=== PATIENT | female | born 1985 | race Caucasian/White ===

== ENCOUNTER 2019-07-01 10:13 | Outpatient (CLI) | payer OTHER, SELFPAY ==
--- NOTE | 2019-07-01 11:22 | P.TNLD_ITS ---
Visit Information Visit Information Date of evaluation: 07/01/19 Primary OB Provider: Carol Herring Reason for Evaluation: Yes non-stress test non-stress test reason: diabetes Vital Signs Vital Signs: Temp 36.1 BP 112/57 HR 75 PFSH Social History marital status: number of children: 3 household members: spouse and children pets and animals: No education level: high school (GED - some College classes) occupational status: employed ([employer]) current occupational exposures/hazards: No special silvia needs: No Smoking Status: Never smoker Evaluation Evaluation Baseline heart rate: 130 Variability: Moderate (11-25) monitor accelerations: Present monitor decelerations: Absent Diagnosis, Plan/Disposition Final Diagnosis (1) GDM, class A2: Current Visit: No Status: Acute (2) 32 weeks gestation of : Current Visit: Yes Status: Acute Plan/Disposition Plan: Reactive NST done for GDM A2. Plan on twice weekly NST and induction at 39 weeks. OB Disposition: home
== END 2019-07-01 11:00 | disposition home or self-care (01) ==
LOC: OB 14:41
PROVIDERS: Visit Provider Family Medicine
DX: O24.415 Gestational diabetes mellitus in pregnancy, controlled by oral hypoglycemic drugs (principal); Z3A.32 32 weeks gestation of pregnancy; Z87.440 Personal history of urinary (tract) infections
CPT/HCPCS: 59025; 87086; G0378; G0379

== ENCOUNTER → 2019-07-01 11:21 | Outpatient (CLI) | payer OTHER, SELFPAY | PROVIDERS: Visit Provider Family Medicine | DX: Z34.93 Encounter for supervision of normal pregnancy, unspecified, third trimester (principal); Z3A.32 32 weeks gestation of pregnancy; Z87.440 Personal history of urinary (tract) infections | CPT/HCPCS: 87086 ==

== ENCOUNTER 2019-07-15 10:17 | Outpatient (CLI) | payer OTHER, SELFPAY ==
--- NOTE | 2019-07-15 11:55 | PM.OBTRLD ---
Visit Information Visit Information Date of evaluation: 07/15/19 Primary OB Provider: Carol Herring Reason for Evaluation: Yes non-stress test non-stress test reason: diabetes Vital Signs Vital Signs: Temperature 35.9? blood pressure 125/59 heart rate 77 PFSH Social History marital status: number of children: 3 household members: spouse and children pets and animals: No education level: high school (GED - some College classes) occupational status: employed ([employer]) current occupational exposures/hazards: No special silvia needs: No Smoking Status: Never smoker Evaluation Evaluation Baseline heart rate: 130 Variability: Moderate (11-25) monitor accelerations: Present monitor decelerations: Absent Category of Tracing: I Diagnosis, Plan/Disposition Final Diagnosis (1) GDM, class A2: Current Visit: No Status: Acute (2) 34 weeks gestation of : Current Visit: No Status: Acute Plan/Disposition Plan: Reactive NST done for GDM A2. Continue twice weekly NST and once weekly JOSH. OB Disposition: home
== END 2019-07-15 11:16 | disposition home or self-care (01) ==
LOC: LABOR 10:49 → OB 14:27
PROVIDERS: PCP Family Medicine; Visit Provider Family Medicine
DX: O24.419 Gestational diabetes mellitus in pregnancy, unspecified control (principal); Z3A.34 34 weeks gestation of pregnancy
CPT/HCPCS: 59025; G0378; G0379

== ENCOUNTER 2019-07-22 10:27 | Outpatient (CLI) | payer OTHER, SELFPAY ==
--- NOTE | 2019-07-22 11:06 | DI.US.S_ITS ---
PROCEDURE: US OB LIMITED INDICATIONS: JOSH OUTSIDE/PRIOR DATING DATA: Last menstrual period (LMP): 11/19/2018. LMP-based estimated date of delivery (DHRUV): 08/26/2019. First dating scan (date and location): None. Estimated date of delivery (DHRUV) from first dating scan: NA . TECHNIQUE: Real-time scanning was performed of the fetus, with image documentation and biometric measurements. Endovaginal scanning: Not performed COMPARISON: None. FINDINGS: General: A single living intrauterine gestation is present. Presentation: Vertex. Placenta: Placental position is anterior, without previa. Amniotic fluid index: 16.8 cm, normal range is 5-24 cm. (largest pocket 4.8 cm) heart rate: 143 beats per minute. IMPRESSION: 1. Bowen the living intrauterine at 35 weeks 0 days based on LMP. Vertex presentation. 2. Normal placenta and amniotic fluid. JOSH is 16.8 cm. Dictated by: Luiz Andrew M.D. on 07/22/2019 at 12:13 Approved by: Luiz Andrew M.D. on 07/22/2019 at 12:16
--- NOTE | 2019-07-22 13:06 | PM.OBTRLD ---
Visit Information Visit Information Date of evaluation: 07/22/19 Primary OB Provider: Carol Herring Reason for Evaluation: Yes non-stress test non-stress test reason: diabetes (GDM A2) Vital Signs Vital Signs: T 35.9 BP 117/62 HR 80 PFSH Social History marital status: number of children: 3 household members: spouse and children pets and animals: No education level: high school (GED - some College classes) occupational status: employed ([employer]) current occupational exposures/hazards: No special silvia needs: No Smoking Status: Never smoker Evaluation Evaluation Baseline heart rate: 140 Variability: Moderate (11-25) monitor accelerations: Present monitor decelerations: Absent Category of Tracing: I Diagnosis, Plan/Disposition Final Diagnosis (1) 35 weeks gestation of : Current Visit: No Status: Acute (2) GDM, class A2: Current Visit: No Status: Acute Plan/Disposition Plan: Reactive NST done for GDM A2. JOSH 16. Continue twice weekly NST and once weekly JOSH. OB Disposition: home
== END 2019-07-22 11:30 | disposition home or self-care (01) ==
LOC: LABOR 11:04 → OB 07-23 11:21
PROVIDERS: PCP Family Medicine; Referring Provider Family Medicine; Visit Provider Family Medicine
DX: O24.419 Gestational diabetes mellitus in pregnancy, unspecified control (principal); Z3A.35 35 weeks gestation of pregnancy
CPT/HCPCS: 59025; 76815; G0378; G0379

== ENCOUNTER → 2019-07-29 10:01 | Outpatient (CLI) | payer OTHER, SELFPAY ==
[2019-07-30 10:18] LABS: Strep Grp B PCR NEG for Grp B Strep
== END ==
PROVIDERS: PCP Family Medicine; Visit Provider Family Medicine
DX: Z3A.36 36 weeks gestation of pregnancy (principal)
CPT/HCPCS: 87653

== ENCOUNTER 2019-07-29 10:23 | Outpatient (CLI) | payer OTHER, SELFPAY ==
--- NOTE | 2019-07-29 10:30 | DI.US.S_ITS ---
PROCEDURE: US OB LIMITED INDICATIONS: JOSH Additional history: Gestational diabetes. OUTSIDE/PRIOR DATING DATA: Last menstrual period (LMP): 11/19/2018. LMP-based estimated date of delivery (DHRUV): 08/26/2019. First dating scan (date and location): 07/22/2019. Estimated date of delivery (DHRUV) from first dating scan: NA. TECHNIQUE: Real-time scanning was performed of the fetus, with image documentation. Endovaginal scanning: Not performed COMPARISON: [facility], OB LIMITED, 07/22/2019, 11:19. FINDINGS: A single living intrauterine gestation is present. Presentation: Vertex. Placenta: Placental position is anterior, without previa. Amniotic fluid index: 10.6 cm, normal range is 5-24 cm. largest pocket measuring 3.9 cm. heart rate: 132 beats per minute. IMPRESSION: 1. Bowen living intrauterine at 36 weeks 0 days. Vertex position. 2. Normal placenta and amniotic fluid. JOSH 10.6. Dictated by: Luiz Andrew M.D. on 07/29/2019 at 12:18 Approved by: Luiz Andrew M.D. on 07/29/2019 at 12:22
--- NOTE | 2019-07-29 10:42 | P.TNLD_ITS ---
Visit Information Visit Information Date of evaluation: 07/29/19 Primary OB Provider: Carol Herring Reason for Evaluation: Yes non-stress test non-stress test reason: diabetes (GDM A2) Vital Signs Vital Signs: Temperature 35.8? blood pressure 129/78 pulse 79 PFSH Social History marital status: number of children: 3 household members: spouse and children pets and animals: No education level: high school (GED - some College classes) occupational status: employed ([employer]) current occupational exposures/hazards: No special silvia needs: No Smoking Status: Never smoker Evaluation Evaluation Baseline heart rate: 130 Variability: Moderate (11-25) monitor accelerations: Present monitor decelerations: Absent Diagnosis, Plan/Disposition Final Diagnosis (1) GDM, class A2: Current Visit: No Status: Acute (2) 36 weeks gestation of : Current Visit: Yes Status: Acute Plan/Disposition Plan: Reactive NST. JOSH 10. OB Disposition: home
== END 2019-07-29 11:10 | disposition home or self-care (01) ==
LOC: OB 07-30 08:12
PROVIDERS: PCP Family Medicine; Referring Provider Family Medicine; Visit Provider Family Medicine
DX: O24.419 Gestational diabetes mellitus in pregnancy, unspecified control (principal); O47.03 False labor before 37 completed weeks of gestation, third trimester; Z3A.36 36 weeks gestation of pregnancy
CPT/HCPCS: 59025; 76815; 87653; G0378; G0379

== ENCOUNTER 2019-08-01 12:20 | Outpatient (CLI) | payer OTHER, SELFPAY ==
--- NOTE | 2019-08-01 14:25 | PM.OBTRLD ---
Visit Information Visit Information Date of evaluation: 08/01/19 Primary OB Provider: Carol Herring Reason for Evaluation: Yes non-stress test non-stress test reason: diabetes Vital Signs Vital Signs: T 36.7 BP 120/67 PFSH Social History marital status: number of children: 3 household members: spouse and children pets and animals: No education level: high school (GED - some College classes) occupational status: employed ([employer]) current occupational exposures/hazards: No special silvia needs: No Smoking Status: Never smoker Evaluation Evaluation Baseline heart rate: 140 Variability: Moderate (11-25) monitor accelerations: Present monitor decelerations: Absent Category of Tracing: I Diagnosis, Plan/Disposition Final Diagnosis (1) 36 weeks gestation of : Current Visit: No Status: Acute (2) GDM, class A2: Current Visit: No Status: Acute Plan/Disposition Plan: Reactive NST though not technically 20 min because patient had to leave. Continue twice week NST and weekly JOSH. OB Disposition: home
== END 2019-08-01 13:51 | disposition home or self-care (01) ==
LOC: AC 12:34 → OB 08-02 10:21
PROVIDERS: PCP Family Medicine; Referring Provider Family Medicine; Visit Provider Family Medicine
DX: O24.419 Gestational diabetes mellitus in pregnancy, unspecified control (principal); Z3A.36 36 weeks gestation of pregnancy
CPT/HCPCS: 59025; G0378; G0379

== ENCOUNTER 2019-08-06 10:36 | Outpatient (CLI) | payer OTHER, SELFPAY ==
--- NOTE | 2019-08-06 11:48 | P.TNLD_ITS ---
Visit Information Visit Information Date of evaluation: 08/06/19 Primary OB Provider: Carol Herring Reason for Evaluation: Yes non-stress test non-stress test reason: diabetes Vital Signs Vital Signs: Temperature 35.8? pressure 133/67 heart rate 80 PFSH Social History marital status: number of children: 3 household members: spouse and children pets and animals: No education level: high school (GED - some College classes) occupational status: employed ([employer]) current occupational exposures/hazards: No special silvia needs: No Smoking Status: Never smoker Evaluation Evaluation Baseline heart rate: 135 Variability: Moderate (11-25) monitor accelerations: Present monitor decelerations: Absent Category of Tracing: I Diagnosis, Plan/Disposition Final Diagnosis (1) GDM, class A2: Current Visit: No Status: Acute (2) 37 weeks gestation of : Current Visit: Yes Status: Acute Plan/Disposition Plan: Reactive NST for GDM A2 OB Disposition: home
== END 2019-08-06 11:40 | disposition home or self-care (01) ==
LOC: OB 08-07 10:31
PROVIDERS: PCP Family Medicine; Referring Provider Family Medicine; Visit Provider Family Medicine
DX: O24.419 Gestational diabetes mellitus in pregnancy, unspecified control (principal); Z3A.37 37 weeks gestation of pregnancy
CPT/HCPCS: 59025; G0378; G0379

== ENCOUNTER 2019-08-08 10:31 | Outpatient (CLI) | payer OTHER, SELFPAY ==
--- NOTE | 2019-08-08 11:21 | PM.OBTRLD ---
Visit Information Visit Information Date of evaluation: 08/08/19 Primary OB Provider: Carol Herring Reason for Evaluation: Yes non-stress test non-stress test reason: diabetes (GDM A2) Vital Signs Vital Signs: Temperature 36.2? blood pressure 123/79 heart rate 80 PFSH Social History marital status: number of children: 3 household members: spouse and children pets and animals: No education level: high school (GED - some College classes) occupational status: employed ([employer]) current occupational exposures/hazards: No special silvia needs: No Smoking Status: Never smoker Evaluation Evaluation Baseline heart rate: 140 Variability: Moderate (11-25) monitor accelerations: Present monitor decelerations: Absent Category of Tracing: I Diagnosis, Plan/Disposition Final Diagnosis (1) GDM, class A2: Current Visit: No Status: Acute (2) 37 weeks gestation of : Current Visit: No Status: Acute Plan/Disposition Plan: Reactive for GDM A2 OB Disposition: home
== END 2019-08-08 11:17 | disposition home or self-care (01) ==
LOC: LABOR 10:42 → OB 08-09 10:34
PROVIDERS: PCP Family Medicine; Referring Provider Family Medicine; Visit Provider Family Medicine
DX: O24.415 Gestational diabetes mellitus in pregnancy, controlled by oral hypoglycemic drugs (principal); Z3A.37 37 weeks gestation of pregnancy
CPT/HCPCS: 59025; G0378; G0379

== ENCOUNTER 2019-08-12 11:08 | Observation (INO) | payer OTHER, SELFPAY ==
--- NOTE | 2019-08-12 11:44 | P.TNLD_ITS ---
Visit Information Visit Information Date of evaluation: 08/12/19 Primary OB Provider: Carol Herring On-call OB Provider: Viv Read Reason for Evaluation: Yes non-stress test non-stress test reason: diabetes (GDMA2) PFSH Social History marital status: number of children: 3 household members: spouse and children pets and animals: No education level: high school (GED - some College classes) occupational status: employed ([employer]) current occupational exposures/hazards: No special silvia needs: No Smoking Status: Never smoker Evaluation Evaluation Baseline heart rate: 140 Variability: Moderate (11-25) monitor accelerations: Present monitor decelerations: Absent Diagnosis, Plan/Disposition Final Diagnosis (1) GDM, class A2: Current Visit: No Status: Acute (2) 38 weeks gestation of : Current Visit: Yes Status: Acute Plan/Disposition Plan: Reactive NST. JOSH 8.54 in clinic. IOL scheduled for 08/19. OB Disposition: home
== END 2019-08-12 11:40 | disposition home or self-care (01) ==
PROVIDERS: Admitting Provider Family Medicine; PCP Family Medicine; Referring Provider Family Medicine; Visit Provider Family Medicine
DX: O24.415 Gestational diabetes mellitus in pregnancy, controlled by oral hypoglycemic drugs (principal); Z3A.38 38 weeks gestation of pregnancy
CPT/HCPCS: 59025; G0378; G0379

== ENCOUNTER 2019-08-18 18:54 | Inpatient (IN) | payer OTHER, SELFPAY ==
[2019-08-18 20:14] VITALS: BP 125/79
[2019-08-18 20:35] LABS: Add Manual Diff / Slide Review NO; Basophils Absolute Auto 0 /uL (0-100); Basophils Percent Auto 0.5 % (0-2); Eosinophils Absolute Auto 0 /uL (0-450); Eosinophils Percent Auto 0.3 % (2-4); Hematocrit 32.6 % (36-46); Hemoglobin 10.5 g/dL (12.0-16.0); Lymphocytes Absolute Auto 1400 /uL (1100-4500); Lymphocytes Percent Auto 16.1 % (25-40); Mean Corpuscular HGB Conc 32.4 % (30-36); Mean Corpuscular Hemoglobin 26.4 PG (26-34); Mean Corpuscular Volume 81.6 fL (80-100); Monocytes Absolute Auto 400 /uL (0-900); Monocytes Percent Auto 4.9 % (3-14); Neutrophils Absolute Auto 6800 /uL (1500-7000); Neutrophils Percent Auto 78.2 % (50-75); Platelet Count 183 X10^3/uL (150-400); Red Blood Cell Count 3.99 X10^6/uL (4.0-5.2); Red Cell Distribution Width 14.8 % (11.6-14.8); White Blood Cell Count 8.7 X10^3/uL (4.5-11.0)
[2019-08-18] MEDS: miSOPROStoL 25 MCG TABLET PO (20:44)
[2019-08-19] MEDS: miSOPROStoL 25 MCG TABLET 50 MCG PO (00:32)
--- NOTE | 2019-08-19 07:33 | P.HPOB_ITS ---
OB HPI Date/Time Date of admission: 08/18/19 Date Patient Seen: 08/19/19 Time Patient Seen: 07:20 History of Present Condition Chief complaint: : 4 Para: 3 Estimated Date of Delivery: 08/26/19 Estimated Gestational Age (weeks): 39 Narrative: Kenya Voss is a 33 year old at 39 weeks gestation here for induction for GDMA2 managed with metformin. A1C was 5.9 at the beginning of the . Blood sugars had been well-controlled until the last two weeks of the when patient stopped checking blood sugars regularly but continued to take metformin. She was followed with twice weekly NSTs and weekly AFIs which were normal. Transfer of care at [address] Stuart at [facility]. Indications Indication for induction OB: medical complication (GDMA2) History of Present care: good care, number of visits (8) and pounds weight gain (27) Dating criteria: LMP confirmed by 1st trimester US Ultrasounds: normal mid trimester US Obstetrical complications: gestational diabetes Medical complications: none Preadmission Labs Blood type: B (+) positive -: Antibody screen: negative, GBS status: negative, HBsAG: negative, HIV: negative and RPR/VDLR: negative -: Rubella: not immune and Varicella: unknown HCT: 3.3 PAP: Normal Quad screen: Normal Narrative: A1C 5.9 at beginning of , done due to know prediabetes Prior (ies) History: 10/11/00 38 wks male, epidural 03/25/02 38 wks male, 6 lb 12 oz, epidural 12/28/06 39.3 wks, male 7 lb 7 oz, epidural Evaluation Evaluation Baseline heart rate: 140 Variability: Average (6-10) monitor accelerations: Absent monitor decelerations: Late Contraction Frequency (minutes): 3 Category of Tracing: II Cervical dilation (cm): 3 Cervical effacement (%): 100 station: -2 Laboratory results: Laboratory Tests 08/18/19 08/18/19 20:00 20:00 WBC 8.7 RBC 3.99 L Hgb 10.5 L Hct 32.6 L MCV 81.6 MCH 26.4 MCHC 32.4 RDW 14.8 Plt Count 183 Neut % (Auto) 78.2 H Lymph % (Auto) 16.1 L [place] % (Auto) 4.9 Eos % (Auto) 0.3 L Baso % (Auto) 0.5 Neut # (Auto) 6800 Lymph # (Auto) 1400 [place] # (Auto) 400 Eos # (Auto) 0 Baso # (Auto) 0 Blood Type B Positive Antibody Screen Negative [facility] Medical History Anemia (Acute) GDM, class A2 (Acute) History of prediabetes (Acute) Migraine (Acute) Post depression (Acute) Surgical History H/O wisdom tooth extraction (Acute) Family History Mother History of prediabetes Grandfather Diabetes mellitus Grandfather Diabetes mellitus Grandmother Diabetes mellitus Sister Depression Anxiety Social History marital status: number of children: 3 household members: spouse and children pets and animals: No education level: high school (GED - some College classes) occupational status: employed ([employer]) current occupational exposures/hazards: No special silvia needs: No Smoking Status: Never smoker Meds Home Medications and Allergies Home Medications Medication Instructions Recorded Confirmed Type prenat.vits,zoe,qnt-honz-lbvpo 1 tab PO DAILY 04/22/19 08/18/19 History blood sugar diagnostic #100 each 05/13/19 08/18/19 Rx metformin 1,000 mg PO DAILY 07/29/19 08/18/19 History Allergies Allergy/AdvReac Type Severity Reaction Status Date / Time No Known Drug Allergies Allergy Verified 08/18/19 19:51 Review of Systems Review of Systems ROS: Yes All systems reviewed with the patient and are negative except as otherwise documented Exam Vital Signs (past 8 hours): Temperature 35.9? blood pressure 124/64 pulse 87 Const General: healthy appearing and comfortable [facility] Head: normal to inspection Ears: hearing grossly normal bilaterally Nose: external nose normal Face and sinus: normal facial exam Mouth: oral mucosae normal Eyes General: appearance normal, both eyes and all related structures Neck Neck: normal visual inspection Resp Effort & Inspection: normal respiratory effort Auscultation: clear to auscultation bilaterally Cardio Rate: regular rate Rhythm: regular rhythm Heart Sounds: no murmurs GI Other: Gravid External Female Exam: external appearance normal Manual OB Exam: dilated 3, effaced fully and station -2 Presentation: vertex Estimated Weight (lbs): 7 Amniotic Fluid: clear Back/Spine/Pelvis Back: normal to inspection Skin General: no rashes or lesions noted Extrem General: normal to inspection and no pedal edema Objective Labs Result Diagrams: 08/18/19 20:00 Labs: Laboratory Results - last 24 hr 08/18/19 08/18/19 20:00 20:00 WBC 8.7 RBC 3.99 L Hgb 10.5 L Hct 32.6 L MCV 81.6 MCH 26.4 MCHC 32.4 RDW 14.8 Plt Count 183 Neut % (Auto) 78.2 H Lymph % (Auto) 16.1 L [place] % (Auto) 4.9 Eos % (Auto) 0.3 L Baso % (Auto) 0.5 Neut # (Auto) 6800 Lymph # (Auto) 1400 [place] # (Auto) 400 Eos # (Auto) 0 Baso # (Auto) 0 Blood Type B Positive Antibody Screen Negative Assessment and Plan Assessment and Plan Assessment and Plan narrative: 33-year-old at 39 weeks gestation here for induction for GDM A2. Blood sugar was 101 this morning. Patient received 2 doses of Cytotec overnight. SROM with clear fluid at 3:15 a.m.. Patient began having regular pain contractions about 4:00 a.m. and requested an epidural. This morning cervix is 3/100/-2 and patient is med regularly on her own. Continue expectant management. Anticipate vaginal delivery.
[2019-08-19] MEDS: LACTATED RINGERS 1,000 ML 100 ML IV ×3 (08:26→13:08)
--- NOTE | 2019-08-19 11:09 | PM.OBPNLAB ---
Date/Time Date Patient Seen: 08/19/19 Time Patient Seen: 11:00 Pain Control Pain control: epidural Comments: Feeling pressure with contractions Pelvic Exam Dilation (cm): 8 Effacement (%): 100 station: -2 Amniotic membrane status: Ruptured (clear) Contractions Monitor mode: External Contraction frequency (min): 3 Contraction pattern: Regular Status status: Category ll Heart Rate Baseline: 170 Monitor Accelerations: Absent Monitor Decelerations: Late Monitor Variability: Minimal Assessment and Plan Plan: Comments: Patient with good cervical change however no descent now with persistent category II strip with climbing baseline and recurrent late decelerations. Suspect malpresentation as head is not well applied and cervix is loose. Discussed with Dr. Fleming. Will proceed to primary due to intolerance of labor. Risks of surgery reviewed with patient and including risk of bleeding, infection and injury to surrounding organs. Will give 2 g Ancef and 500 mg azithromycin prior to surgery.
[2019-08-19] MEDS: CEFAZOLIN 2 GM/100 ML FROZ.PIGGY IV (11:32)
[2019-08-19] MEDS: AZITHROMYCIN 500 MG in DEXTROSE 5% IN WATER 250 ML IV (11:40)
--- NOTE | 2019-08-19 11:41 | PM.PREOP ---
Pre-operative Note Interval Note History & Physical reviewed/Exam performed by Physician: Yes Changes to H&P: No
--- NOTE | 2019-08-19 12:13 | SUR.OPER ---
Supine on Padded OR bed, head on pillow, safety belt at thigh, arms secured on padded arm boards at <90 degrees abduction. Bump under right buttock. Legs uncrossed with pillow under knees, gel pad to heels, tape over blanket to lower legs.
--- NOTE | 2019-08-19 12:15 | SUR.OPER ---
Viable female delivered at 1154. Cord blood and Placenta sent with L&D nurse.
[2019-08-19 13:00] VITALS: BP 116/46; PULSE 112; RESP 20; TEMP 36.1; O2SAT 99
--- NOTE | 2019-08-19 13:03 | P.OP_ITS ---
Operative Date/Time/Diagnoses Date of procedure: 08/19/19 Time of procedure: 12:03 Pre-op diagnosis: cat 2 EFM, arrest of dilation Post-op diagnosis: same Procedure & Clinicians Procedure: primary section Same procedure as scheduled: Yes Indications: Cat 2 EFM with tachycardia, minimal variability, and recurrent lates with perisistent cervical exam of 8/100/-2, OP presentation Surgeon: Priscilla Fleming Director Of Student Services: Carol Herring Anesthesia Type: Epidural Operative Notes Findings: Female fetus, apgars 8+9, weight 6#12, direct occiput posterior with nuchal cord x1. Otherwise normal tubes, ovaries, uterus. Closure Type: primary Specimen(s): none sent Estimated Blood Loss (mL): 500 Procedure in detail: EBL: 500ccs Fluids:1800ccs UOP: 400ccs Findings:female infant in cephalic presentation, Apgars 8+9, weight 6#12, normal uterus, tubes, ovaries. Procedures: The patient was taken to the operating room where epidural anesthesia was bolused and found to be adequate. She was prepped and draped in the normal sterile fashion in the dorsal supine position with a leftward tilt. A Pfannenstiel skin incision was made with a scalpel and carried through to the underlying layer of fascia. The fascia was incised in the midline and the incision extended laterally with Jacobs scissors. The inferior aspect of this incision was grasped with Coral clamps, elevated. and the underlying rectus muscles dissected off bluntly. Attention was then turned to the superior aspect of this incision which, in a similar fashion, was grasped, tented up with the Coral clamps, and the rectus muscles dissected off bluntly. The rectus muscles were then in the midline, and the peritoneum identified, tented up, and entered sharply with Metzenbaum scissors. The peritoneal incision was extended superiorly and inferiorly with good visualization of the bladder. The bladder blade was inserted and the vesicaouterine peritoneum identified, grasped with pickups, and entered sharply with the Metzenbaum scissors. This incision was extended laterally, and the bladder flap created digitally. The bladder blade was then reinserted and the lower uterine segment incised in transverse fashion with the scalpel. The uterine incision was bluntly extended laterally. The bladder blade was removed, and the infant's head delivered atraumatically. After 45 seconds of delayed cord clamping, the cord was clamped and cut. The nose and mouth were suctioned as needed with a bulb synringe, and the was handed off to awaiting respiratory therapy. The placenta was then removed spontaneously, and the uterus was exteriorized and cleared of all clots and debris. The uterine incision was repaired with 1-0 chromic in a running, locked fashion a 2nd layer of the same suture was used to obtain excellent hemostasis. The uterus was returned to the abdomen, and the gutters were cleared of all clots and debris. A bladder flap was closed with 2-0 vicryl in a running fashion. The peritoneum was closed with 3-0 Vicryl, and the fascia reapproximated with 0 Vicryl in a running fashion. The subcutaneous layer was placed with 3 0 Vicryl in an interrupted fashion and the skin was closed with 4-0 biosyn in a running fashion. The patient tolerated the procedure well. sponge lap and needle counts were correct x2. 2 g of Ancef and 500mg azithromycin were given at commencement of the case. The patient was taken to the recovery room in stable condition. Complications: none Post-operative Condition: stable Disposition: PACU Plan for aftercare: Routine post-CS care
[2019-08-19 13:05] VITALS: BP 92/66; PULSE 112; RESP 16; TEMP 36.1; O2SAT 96
[2019-08-19 13:09] VITALS: BP 107/56; PULSE 104; RESP 17; TEMP 36.1; O2SAT 94
[2019-08-19 13:15] VITALS: BP 91/57; PULSE 117; RESP 22; TEMP 36.1; O2SAT 96
[2019-08-19] MEDS: MEPERIDINE 50 MG/ML INJ 25 MG IV (13:15)
[2019-08-19 13:29] VITALS: BP 115/61; PULSE 103; RESP 19; TEMP 36.2; O2SAT 96
[2019-08-19 13:41] VITALS: BP 114/65; PULSE 105; RESP 18; TEMP 36.2; O2SAT 95
[2019-08-19] MEDS: OXYCODONE IR 5 MG TABLET PO ×2 (15:04→20:29)
[2019-08-19] MEDS: KETOROLAC 30 MG/ML VIAL IV ×2 (15:59→21:57)
[2019-08-19] MEDS: LANOLIN OINT 7 GM 1 APPLIC TOP (21:57)
[2019-08-20] MEDS: LACTATED RINGERS 1,000 ML 100 ML IV (00:12)
[2019-08-20] MEDS: OXYCODONE IR 5 MG TABLET PO ×4 (02:19→18:39)
[2019-08-20] MEDS: KETOROLAC 30 MG/ML VIAL IV ×2 (05:02→11:02)
[2019-08-20 07:39] LABS: Hematocrit 24.3 % (36-46)
[2019-08-20] MEDS: PRENATAL VIT,CALC/IRON/FOLIC 1 TABLET 1 TAB PO (07:54)
[2019-08-20] MEDS: DOCUSATE 250 MG CAPSULE PO (07:54)
[2019-08-20] MEDS: FERROUS GLUCONATE 324 MG TABLET PO (11:02)
--- NOTE | 2019-08-20 13:07 | PM.OBPN.1 ---
Subjective - OB Subjective Patient comments: incisional pain and tolerating diet feeding status: breast and bottle feeding Date Patient Seen: 08/20/19 Time Patient Seen: 13:09 Interval history: No complaints other than incisional pain with movement. She is eating and ambulating. Denies dizziness or lightheadedness. Has voided twice since catheter removed. Bleeding is similar to a period. Attempted to breast feed but having difficulty latching on the left side. Infant has had issues with low blood sugar so has been receiving some formula. Exam Vital Signs (past 8 hours): Oxygen Delivery Method Room Air Temperature 98.4? blood pressure 131/76 heart rate 101 respirations 17 Narrative Exam Narrative: General: Awake and alert, no acute distress. HEENT: NCAT, EOMI, moist oral mucosa CV: Regular rate and rhythm, no murmurs, rubs or gallops Lungs: CTAB, no wheezes, rales, or rhonchi Abdomen: Aquacel dressing intact without new drainage. Soft, nontender; bowel tones active; uterus firm 1 cm below umbilicus Extremities: Warm, no edema bilaterally, 2+ pedal pulses bilaterally Objective Labs Result Diagrams: 08/20/19 07:20 Labs: Laboratory Results - last 24 hr 08/20/19 07:20 Hgb 8.0 L Hct 24.3 L Assessment & Plan Assessment and Plan (1) 39 weeks gestation of : Status: Acute Current Visit: Yes (2) S/P : Problem details: intolerance of labor 08/19/19 Status: Acute Current Visit: Yes (3) intolerance to labor, delivered, current hospitalization: Status: Acute Current Visit: Yes Plan day: 1 plan OB: routine postop care Comments: Overall doing well after primary for intolerance of labor. Will start iron for acute blood loss anemia. to see patient and today. Anticipate discharge home tomorrow. Time Spent With Patient Time: Total time spent is greater than 50% in coordination of care (as documented) at patient's floor/unit and/or counseling patient: Time with patient: less than 15 minutes
[2019-08-20] MEDS: IBUPROFEN 600 MG TABLET PO (18:44)
[2019-08-20] MEDS: MAG HYDROX/ALUM/SIMETH 30 ML UDC PO (20:54)
[2019-08-20] MEDS: ACETAMINOPHEN 325 MG TABLET 650 MG PO (20:54)
[2019-08-20] MEDS: OXYCODONE IR 10 MG TABLET PO (20:55)
[2019-08-21] MEDS: OXYCODONE IR 10 MG TABLET PO ×3 (00:26→09:19)
[2019-08-21] MEDS: IBUPROFEN 600 MG TABLET PO ×2 (00:26→08:15)
[2019-08-21] MEDS: MAG HYDROX/ALUM/SIMETH 30 ML UDC PO ×2 (02:31→08:15)
[2019-08-21] MEDS: ACETAMINOPHEN 325 MG TABLET 650 MG PO (05:03)
--- NOTE | 2019-08-21 08:14 | PM.OBDS.1 ---
Discharge Providers Provider Date of admission: 08/18/19 18:54 Discharge Date: 08/21/19 Primary care physician: Carol Herring DO Consults: 08/19/19 14:32 Consult to Switchboard And Control Room Operator Routine Comment: Discharge provider: Carol Herring DO Summary Hospital Course Date Patient Seen: 08/21/19 Time Patient Seen: 08:00 Procedures: Primary low-transverse section Hospital Course: Patient is a 33-year-old G4 now P4 after primary for intolerance of labor on 08/19/2019. She was brought in for induction at 39 weeks due to GDM A2 on metformin. She received 2 doses of Cytotec then progressed into labor. She received an epidural with good pain control. Labor was progressing well however head remained high in the pelvis despite cervical dilation then fetus went on to develop tachycardia with recurrent late decelerations. The decision was made at that time for primary due to intolerance of labor and suspected malpresentation. Infant was found to be direct occiput posterior upon delivery in the operating room. Apgars were 8 and 9 and did well. patient had some issues with pain control. Ultimately pain was manageable with Tylenol, ibuprofen and oxycodone 10 mg q.4 hours. She was ambulating, eating, voiding and passing flatus. Bleeding was reportedly light. Blood sugars were monitored in the infant and stable at the time of discharge. She was primarily formula feeding due to difficulty latching but wanted to work on more at home. She was seen by twice in the hospital as well. Patient will discharge today in follow-up in clinic in 1 week for incision check in bed at removal. She was advised to call for fevers, severe pain or bleeding through more than a pad an hour. Peripartum Data Delivery Method: Section complications: none [place] 1: Gender: Female Disposition of : home Discharge Diagnosis (1) 39 weeks gestation of : Status: Acute (2) S/P : Status: Acute Problem Details: intolerance of labor 08/19/19 (3) intolerance to labor, delivered, current hospitalization: Status: Acute Status at Discharge Cognitive/behavioral status at discharge: at baseline, oriented Functional status at discharge: independent ambulation Overall status at discharge: patient is progressing back to baseline Time Spent with Patient Time attestation: Total time spent providing and/or coordinating discharge services: Time spent: Less than 30 minutes Objective Labs Result Diagrams: 08/20/19 07:20 Exam Vital Signs (past 8 hours): Oxygen Delivery Method Room Air Temperature 97.7? blood pressure 120/77 heart rate 88 respirations 18 Narrative Exam Narrative: General: Awake and alert, no acute distress. HEENT: NCAT, EOMI, moist oral mucosa CV: Regular rate and rhythm, no murmurs, rubs or gallops Lungs: CTAB, no wheezes, rales, or rhonchi Abdomen: Aquacel dressing intact without new drainage. Bowel tones active; uterus firm 1 cm below umbilicus. Extremities: Warm, no edema bilaterally, 2+ pedal pulses bilaterally Discharge Plan Discharge Plan Patient Disposition: Home Discharge comment: Patient advised to call for fevers, bleeding through more than a pad an hour or severe pain Discharge orders & Medications Prescriptions: New ibuprofen 600 mg Tablet 600 mg PO Q6HR PRN (Reason: Fever/Mild Pain (1-3)) Qty: 30 RF: 0 docusate sodium 250 mg Capsule 250 mg PO BID Qty: 30 RF: 0 oxycodone 5 mg Tablet 5 mg PO Q4HR PRN (Reason: Pain, Moderate (4-6)) Qty: 30 RF: 0 ferrous gluconate 324 mg (38 mg iron) Tablet 324 mg PO DAILY Qty: 30 RF: 0 Continued prenat.vits,zoe,ulj-ptgo-akixj Tablet 1 tab PO DAILY RF: 0 Discontinued (DME) Blood Glucose Test Strip See Rx Instructions .ROUTE .MEDSUPPLY Qty: 100 RF: 11 metformin 500 mg tablet 1,000 mg PO DAILY RF: 0 No Action alum-mag hydroxide-simeth [Mag-Al Plus] 200-200-20 mg/5 mL suspension 30 ml PO Q6HR PRN (Reason: Dyspepsia) Qty: 100 RF: 0 acetaminophen 325 mg tablet 650 mg PO Q6HR PRN (Reason: Fever/Mild Pain (1-3)) Qty: 30 RF: 0 Follow up/Referrals: Carol Herring DO [Primary Care Provider] - 08/26/19 9:45 am (check in 15 minutes prior to appointment) Visit Report/Discharge Packet Stand Alone Forms: Discharge: Care Visit Report Forms: Patient Portal/API, Stroke Signs & Symptoms Discharge Data Primary Care Provider: Carol Herring Discharges patient from system. Discharge Date/Time: 08/21/19 12:20
[2019-08-21] MEDS: DOCUSATE 250 MG CAPSULE PO (08:15)
[2019-08-21] MEDS: PRENATAL VIT,CALC/IRON/FOLIC 1 TABLET 1 TAB PO (08:15)
[2019-08-21] MEDS: FERROUS GLUCONATE 324 MG TABLET PO (08:15)
[2019-08-21 09:22] VITALS: BP 114/65; PULSE 105; RESP 18; TEMP 36.2
== END 2019-08-21 12:20 | disposition home or self-care (01) | DRG 787 ==
PROVIDERS: Obstetrics & Gynecology; Admitting Provider Family Medicine; PCP Family Medicine; Referring Provider Family Medicine; Visit Provider Family Medicine
PROC: 10D00Z1 Extraction of Products of Conception, Low, Open Approach (ICD-10-PCS; CPT 59514; principal; 2019-08-19 12:30)
DX: O24.425 Gestational diabetes mellitus in childbirth, controlled by oral hypoglycemic drugs (principal); D62 Acute posthemorrhagic anemia; Z3A.39 39 weeks gestation of pregnancy; Z37.0 Single live birth; O64.0XX0 Obstructed labor due to incomplete rotation of fetal head, not applicable or unspecified; O62.0 Primary inadequate contractions; O76 Abnormality in fetal heart rate and rhythm complicating labor and delivery; O69.1XX0 Labor and delivery complicated by cord around neck, with compression, not applicable or unspecified
CPT/HCPCS: 01967; 01968; 59050; 59200; 59514; 59515; 85014; 85018; 85025; 86850; 86900; 86901; G0379; J0690; J1885; J2175; J2274; J2590; J2765; J3010

== ENCOUNTER → 2020-07-31 10:30 | Outpatient (CLI) | payer OTHER, SELFPAY ==
[2020-07-31 11:33] LABS: Add Manual Diff / Slide Review NO; Basophils Absolute Auto 0 /uL (0-100); Basophils Percent Auto 0.9 % (0-2); Eosinophils Absolute Auto 100 /uL (0-450); Eosinophils Percent Auto 1.7 % (2-4); Hematocrit 39.6 % (36-46); Hemoglobin 12.5 g/dL (12.0-16.0); Lymphocytes Absolute Auto 1500 /uL (1100-4500); Lymphocytes Percent Auto 26.8 % (25-40); Mean Corpuscular HGB Conc 31.5 % (30-36); Mean Corpuscular Hemoglobin 25.9 PG (26-34); Mean Corpuscular Volume 82.4 fL (80-100); Monocytes Absolute Auto 400 /uL (0-900); Monocytes Percent Auto 7.9 % (3-14); Neutrophils Absolute Auto 3500 /uL (1500-7000); Neutrophils Percent Auto 62.7 % (50-75); Platelet Count 245 X10^3/uL (150-400); Red Cell Distribution Width 17.3 % (11.6-14.8); White Blood Cell Count 5.5 X10^3/uL (4.5-11.0)
[2020-07-31 11:55] LABS: Hemoglobin A1C% w Est Avg Glu 5.7 % (4.0-6.0)
[2020-07-31 11:59] LABS: Alanine Aminotransferase 34 IU/L (<35); Albumin 4.4 g/dL (3.5-5.0); Albumin Globulin Ratio 1.3 (1.0-2.8); Alkaline Phosphatase 55 U/L (38-126); Aspartate Aminotransferase 27 IU/L (14-36); Bilirubin Total 0.3 mg/dL (0.2-1.3); Blood Urea Nitrogen 16 mg/dL (7-17); Calcium 9.6 mg/dL (8.4-10.2); Carbon Dioxide 27 mmol/L (22-32); Chloride 106 mmol/L (98-107); Cholesterol 231 mg/dL (140-199); Estimated Glomerular Filt Rate > 60.0 mL/min (>60); Globulin 3.4 g/dL (1.7-4.1); Glucose 118 mg/dL (70-100); HDL Cholesterol 56 mg/dL (40-60); HEMOLYSIS < 15 (0-50); LDL Cholesterol Calculated 154 mg/dL (<100); Potassium 4.4 mmol/L (3.4-5.1); Sodium 138 mmol/L (137-145); Total Protein 7.8 g/dL (6.3-8.2); Triglycerides 105 mg/dL (35-150)
[2020-07-31 12:45] LABS: TSH w/ Reflex to FT4 2.27 uIU/mL (0.47-4.68)
== END ==
PROVIDERS: PCP Family Medicine; Referring Provider Family Medicine; Visit Provider Family Medicine
DX: O24.419 Gestational diabetes mellitus in pregnancy, unspecified control (principal); E66.9 Obesity, unspecified; D64.9 Anemia, unspecified
CPT/HCPCS: 36415; 80053; 80061; 83036; 84443; 85025

== ENCOUNTER → 2020-08-24 13:27 | Outpatient (CLI) | payer OTHER, SELFPAY ==
--- NOTE | 2020-10-07 08:35 | PM.CARDMON.1 ---
[employer] Supervisor Report Referral & Results Date Patient Seen: 08/24/20 Requesting provider: Carol Herring Indication: Palpitations Duration of monitoring (days): 8 Diary information: There were 7 patient triggered events there were associated with sinus rhythm only Data: Minimum heart rate identified was 55 beats per minute at 03:05 on 08/29/2020 Maximum sinus heart rate was 163 beats per minute at 18:09 on 08/26/2020 Maximum overall heart rate was 193 beats per minute at 14:25 on 08/29/2020 during a 5 beat run of SVT Less than 1% of identified beats were ventricular or supraventricular ectopic in origin, which would classify them as rare. 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 No correlation with patient identified events and any dysrhythmia whatsoever.
== END ==
PROVIDERS: PCP Family Medicine; Referring Provider Family Medicine; Visit Provider Family Medicine
DX: R00.2 Palpitations (principal)
CPT/HCPCS: 93242; 93244

== ENCOUNTER → 2021-03-02 08:38 | Outpatient (CLI) | payer OTHER, SELFPAY ==
[2021-03-02 09:16] LABS: Pregnancy Test Urine Negative (Negative)
[2021-03-02 10:41] LABS: Urine N gonorrhoeae NOT DETECTED
[2021-03-02 11:11] LABS: Urine Chlamydia NOT DETECTED
== END ==
PROVIDERS: PCP Family Medicine; Visit Provider Nurse Practitioner Family
DX: Z11.3 Encounter for screening for infections with a predominantly sexual mode of transmission (principal)
CPT/HCPCS: 81025; 87210; 87491; 87591

== ENCOUNTER → 2021-03-02 08:45 | Outpatient (CLI) | payer OTHER, SELFPAY ==
[2021-03-02 10:11] LABS: Hemoglobin A1C% w Est Avg Glu 5.5 % (4.0-6.0)
== END ==
PROVIDERS: PCP Family Medicine; Referring Provider Nurse Practitioner Family; Visit Provider Nurse Practitioner Family
DX: R73.03 Prediabetes (principal); Z11.3 Encounter for screening for infections with a predominantly sexual mode of transmission
CPT/HCPCS: 36415; 81025; 83036; 87210; 87491; 87591

== ENCOUNTER → 2021-09-27 11:17 | Outpatient (CLI) | payer OTHER, SELFPAY ==
[2021-09-27 16:07] LABS: Urine N gonorrhoeae NOT DETECTED
[2021-09-27 16:30] LABS: Urine Chlamydia NOT DETECTED
== END ==
PROVIDERS: PCP Family Medicine; Referring Provider Nurse Practitioner Family; Visit Provider Nurse Practitioner Family
DX: N89.8 Other specified noninflammatory disorders of vagina (principal)
CPT/HCPCS: 87086; 87210; 87491; 87591

== ENCOUNTER → 2022-08-29 09:02 | Outpatient (CLI) | payer OTHER, SELFPAY ==
[2022-08-29 10:06] LABS: Add Manual Diff / Slide Review NO; Basophils Absolute Auto 0 /uL (0-100); Basophils Percent Auto 0.5 % (0-2); Eosinophils Absolute Auto 100 /uL (0-450); Eosinophils Percent Auto 1.3 % (2-4); Hematocrit 36.9 % (36-46); Lymphocytes Absolute Auto 1400 /uL (1100-4500); Mean Corpuscular HGB Conc 32.5 % (30-36); Mean Corpuscular Hemoglobin 26.6 PG (26-34); Mean Corpuscular Volume 81.9 fL (80-100); Monocytes Absolute Auto 600 /uL (0-900); Monocytes Percent Auto 6.7 % (3-14); Neutrophils Absolute Auto 6100 /uL (1500-7000); Neutrophils Percent Auto 74.5 % (50-75); Platelet Count 240 X10^3/uL (150-400); Red Blood Cell Count 4.51 X10^6/uL (4.0-5.2); Red Cell Distribution Width 15.8 % (11.6-14.8); White Blood Cell Count 8.2 X10^3/uL (4.5-11.0)
[2022-08-29 10:34] LABS: Alanine Aminotransferase 13 IU/L (<35); Albumin Globulin Ratio 1.3 (1.0-2.8); Alkaline Phosphatase 47 U/L (38-126); Aspartate Aminotransferase 15 IU/L (14-36); BUN Creatinine Ratio 18.9 (6-22); Bilirubin Total 0.4 mg/dL (0.2-1.3); Blood Urea Nitrogen 18 mg/dL (7-17); Calcium 8.9 mg/dL (8.4-10.2); Carbon Dioxide 25 mmol/L (22-32); Chloride 106 mmol/L (98-107); Estimated Glomerular Filt Rate > 60 mL/min (>60); Glucose 87 mg/dL (70-100); HEMOLYSIS < 15 (0-50); Sodium 137 mmol/L (137-145)
[2022-08-29 10:50] LABS: HCG Quantitative /Beta subunit < 2.4 mIU/mL
[2022-08-29 11:02] LABS: INR 1.1 (0.9-1.3); Prothrombin Time 12.8 SECONDS (10.1-12.7)
[2022-08-29 11:05] LABS: PTT Partial Thromboplastin Tim 30 SECONDS (26-36)
== END ==
PROVIDERS: PCP Family Medicine; Referring Provider Physician Assistant; Visit Provider Physician Assistant
DX: Z01.818 Encounter for other preprocedural examination (principal)
CPT/HCPCS: 36415; 80053; 84702; 85025; 85610; 85730

== ENCOUNTER → 2024-12-11 10:07 | Outpatient (CLI) | payer OTHER, SELFPAY ==
[2024-12-11 10:50] LABS: Add Manual Diff / Slide Review NO; Basophils Absolute Auto 0 /uL (0-100); Basophils Percent Auto 0.7 % (0-2); Eosinophils Absolute Auto 100 /uL (0-450); Eosinophils Percent Auto 2.9 % (2-4); Hemoglobin 12.6 g/dL (12.0-16.0); Lymphocytes Absolute Auto 1000 /uL (1100-4500); Mean Corpuscular HGB Conc 33.2 % (30-36); Mean Corpuscular Hemoglobin 28.4 PG (26-34); Mean Corpuscular Volume 85.6 fL (80-100); Monocytes Absolute Auto 300 /uL (0-900); Monocytes Percent Auto 5.9 % (3-14); Neutrophils Absolute Auto 3700 /uL (1500-7000); Neutrophils Percent Auto 71.5 % (50-75); Platelet Count 252 X10^3/uL (150-400); Red Blood Cell Count 4.44 X10^6/uL (4.0-5.2); Red Cell Distribution Width 16.5 % (11.6-14.8); White Blood Cell Count 5.2 X10^3/uL (4.5-11.0)
[2024-12-11 11:14] LABS: HEMOLYSIS < 15 (0-50)
[2024-12-11 11:27] LABS: Hemoglobin A1C% w Est Avg Glu 5.6 % (4.0-6.0)
[2024-12-11 11:34] LABS: Vitamin D 25 Hydroxy (D3) 20.9 ng/mL (30.0-100.0)
[2024-12-11 11:37] LABS: Alanine Aminotransferase 22 IU/L (<35); Albumin 4.3 g/dL (3.5-5.0); Albumin Globulin Ratio 1.6 (1.0-2.8); Alkaline Phosphatase 59 U/L (38-126); Aspartate Aminotransferase 22 IU/L (14-36); BUN Creatinine Ratio 16.3 (6-22); Bilirubin Total 0.4 mg/dL (0.2-1.3); Blood Urea Nitrogen 16 mg/dL (7-17); Calcium 9.9 mg/dL (8.4-10.2); Carbon Dioxide 25 mmol/L (22-32); Chloride 105 mmol/L (98-107); Estimated Glomerular Filt Rate > 60 mL/min (>60); Globulin 2.7 g/dL (1.7-4.1); Glucose 112 mg/dL (70-99); Potassium 4.3 mmol/L (3.4-5.1); Sodium 139 mmol/L (137-145)
[2024-12-11 11:48] LABS: TSH w/ Reflex to FT4 1.29 uIU/mL (0.47-4.68)
[2024-12-11 11:54] LABS: Ferritin 7 ng/mL (6-137)
[2024-12-13 23:07] LABS: Alder IgE <0.10 kU/L (Class 0); Almond IgE <0.10 kU/L (Class 0); Alternaria alternata IgE <0.10 kU/L (Class 0); Aspergillus fumigatus IgE <0.10 kU/L (Class 0); Box Elder IgE <0.10 kU/L (Class 0); Cashew Nut IgE <0.10 kU/L (Class 0); Cat Dander IgE <0.10 kU/L (Class 0); Cladosporium herbarum IgE <0.10 kU/L (Class 0); Clam IgE <0.10 kU/L (Class 0); Cockroach IgE <0.10 kU/L (Class 0); Codfish Allergy IgE < 0.10 kU/L (Class 0); Cottonwood IgE <0.10 kU/L (Class 0); Crab IgE <0.10 kU/L (Class 0); D farinae IgE <0.10 kU/L (Class 0); D pteronyssinus IgE <0.10 kU/L (Class 0); Dog Dander IgE <0.10 kU/L (Class 0); Egg White IgE <0.10 kU/L (Class 0); Elm Tree IgE <0.10 kU/L (Class 0); Hazelnut IgE <0.10 kU/L (Class 0); Immunoglobulin E 19 IU/mL (6-495); Lobster IgE <0.10 kU/L (Class 0); Milk IgE <0.10 kU/L (Class 0); Mouse Urine Proteins IgE <0.10 kU/L (Class 0); Nettle IgE <0.10 kU/L (Class 0); Oak Tree IgE <0.10 kU/L (Class 0); Oyster IgE <0.10 kU/L (Class 0); Peanut IgE <0.10 kU/L (Class 0); Penicillium chrysogen IgE <0.10 kU/L (Class 0); Pigweed, Common IgE <0.10 kU/L (Class 0); Ragweed, Short <0.10 kU/L (Class 0); Salmon Allergy IgE < 0.10 kU/L (Class 0); Scallop Allergy IgE < 0.10 kU/L (Class 0); Sesame seed Allergy IgE < 0.10 kU/L (Class 0); Sheep Sorrel IgE <0.10 kU/L (Class 0); Shrimp IgE <0.10 kU/L (Class 0); Silver Birch IgE <0.10 kU/L (Class 0); Soybean IgE <0.10 kU/L (Class 0); Timothy Grass IgE 0.27 kU/L (Class 0/I); Tuna Allergy IgE < 0.10 kU/L (Class 0); Walnut Allery IgE < 0.10 kU/L (Class 0); Walnut IgE <0.10 kU/L (Class 0); Wheat Allergy IgE < 0.10 kU/L (Class 0); White ash IgE <0.10 kU/L (Class 0)
== END ==
LOC: LAB 10:10
PROVIDERS: Physician Assistant; PCP Family Medicine; Referring Provider Family Medicine; Visit Provider Family Medicine
DX: Z13.29 Encounter for screening for other suspected endocrine disorder (principal); T78.40XA Allergy, unspecified, initial encounter; F41.9 Anxiety disorder, unspecified; F32.A Depression, unspecified; R73.03 Prediabetes; L65.9 Nonscarring hair loss, unspecified; Z68.32 Body mass index [BMI] 32.0-32.9, adult
CPT/HCPCS: 80053; 82306; 82728; 82785; 83036; 84443; 85025; 86003